=== PATIENT | male | born 1985 | race American Indian/Alaskan Native ===

== ENCOUNTER 2016-11-08 23:56 | Emergency (ER) | payer OTHER ==
[2016-11-09 00:35] VITALS: BMI 25.8
[2016-11-09] MEDS ORDERED: Sodium Chloride 0.9% 1,000 ML IV STA (00:51)
--- NOTE | 2016-11-09 01:10 | ED PDOC ---
Arrival/HPI - General Historian: Patient - History of Present Illness Time/Duration: 24 hours Symptom Course: Intermittent Quality: Burning Severity Level: 7 <Tremaine Dale - Last Filed: 11/09/16 05:57> <Shiraz Powers - Last Filed: 11/09/16 06:17> - General Chief Complaint: Male Genitourinary Time Seen by Provider: 11/09/16 00:37 - History of Present Illness Narrative History of Present Illness (Text): 11/09/16 01:06 This is a 31 year old male with PMHx asthma who presents for intermittent right sided lower quadrant abdominal pain with hematuria. Patient states that the pain began earlier yesterday morning when he woke up. Pain is about 6-7/10 burning pain. Patient has also had an episode of karo hematuria which prompted him to come in for evaluation. Patient has seen a nurse practitioner in September 2016 for the same issue. Patient states that he was prescribed antibiotics, tylenol #3, and something to allow easier passage for a suspected kidney stone. Patient noted improvement at the time. Patient also has right flank pain with intermittent radiation to the right testes. Patient denies dysuria. PMHx: Asthma PSHx: Denies Allergies: NKDA Social: Intermittent smoking history. Denies alcohol, drugs. Family Hx: Mom with HTN and DM 11/09/16 02:19 (Tremaine Dale) Past Medical History - Provider Review Nursing Documentation Reviewed: Yes - Cardiac Hx Cardiac Disorders: No - Pulmonary Hx Asthma: Yes - Neurological Hx Neurological Disorder: No - HEENT Hx HEENT Disorder: No - Renal Hx Renal Disorder: No - Endocrine/Metabolic Hx Endocrine Disorders: No - Hematological/Oncological Hx Blood Disorders: No - Integumentary Hx Dermatological Disorder: No - Musculoskeletal/Rheumatological Hx Musculoskeletal Disorders: No - Gastrointestinal Hx Gastrointestinal Disorders: No - Genitourinary/Gynecological Hx Genitourinary Disorders: No - Psychiatric Hx Psychophysiologic Disorder: No Hx Substance Use: No - Anesthesia Hx Anesthesia: Yes <Tremaine Dale - Last Filed: 11/09/16 05:57> Family/Social History - Physician Review Nursing Documentation Reviewed: Yes Family/Social History: Diabetes, Hypertension Smoking Status: Smoker Currrent Status Unknown Hx Alcohol Use: Yes Frequency of alcohol use: Socially Hx Substance Use: No <Tremaine Dale - Last Filed: 11/09/16 05:57> Allergies/Home Meds <Tremaine Dale - Last Filed: 11/09/16 05:57> <Shiraz Powers - Last Filed: 11/09/16 06:17> Allergies/Adverse Reactions: Allergies No Known Allergies Allergy (Verified 11/09/16 00:35) Review of Systems - Review of Systems Constitutional: Normal Eyes: Normal ENT: Normal Respiratory: Normal Cardiovascular: Normal Gastrointestinal: Abdominal Pain (right lower quadrant) Genitourinary Male: Hematuria. absent: Dysuria Musculoskeletal: Other (right flank pain) Skin: Normal Neurological: Normal Endocrine: Normal Hemo/Lymphatic: Normal Psychiatric: Normal <Tremaine Dale - Last Filed: 11/09/16 05:57> Physical Exam Vital Signs Reviewed: Yes Temperature: Afebrile Blood Pressure: Hypotensive Pulse: Regular Respiratory Rate: Normal Appearance: Positive for: Well-Appearing Pain Distress: None Mental Status: Positive for: Alert and Oriented X 3 - Systems Exam Head: Present: Atraumatic, Normocephalic Pupils: Present: PERRL Extroacular Muscles: Present: EOMI Conjunctiva: Present: Normal Mouth: Present: Moist Mucous Membranes Neck: Present: Normal Range of Motion Respiratory/Chest: Present: Clear to Auscultation, Good Air Exchange. No: Accessory Muscle Use Cardiovascular: Present: Regular Rate and Rhythm, Normal S1, S2 Abdomen: Present: Normal Bowel Sounds. No: Tenderness, Distention Genitourinary Male: No: Testicle Tenderness Back: Present: CVA Tenderness (right side) Upper Extremity: Present: Normal Inspection, NORMAL PULSES. No: Edema Lower Extremity: Present: Normal Inspection, NORMAL PULSES. No: Edema, CALF TENDERNESS Neurological: Present: GCS=15, CN II-XII Intact Skin: Present: Warm, Dry, Normal Color. No: Rashes Psychiatric: Present: Alert, Oriented x 3 <Tremaine Dale - Last Filed: 11/09/16 05:57> Medical Decision Making <Tremaine Dale - Last Filed: 11/09/16 05:57> <Shiraz Powers - Last Filed: 11/09/16 06:17> ED Course and Treatment: 11/09/16 01:15 CBC, CMP, Coag, Lipase, UA, CT abdomen/pelvis w.o. contrast, NS 1L bolus, Testicular duplex 11/09/16 02:26 Rocephin 1 gm IV given. 11/09/16 04:16 CT abd/pelvis w.o. contrast: FINDINGS: The liver, spleen, gallbladder and pancreas appear grossly normal on this non- contrast study. There is severe right hydronephrosis and cortical thinning presumably congenital UPJ obstruction. There is a small amount of haziness in the surrounding fat concerning for acute infectious/inflammatory process. The left kidney appears grossly normal. No ureteral calculi. The bowel appears grossly normal. A normal appendix is identified coronal images 34 through 43. Small lymph nodes are noted in the groins bilaterally. IMPRESSION: Severe right hydronephrosis and cortical thinning presumably congenital UPJ obstruction. Small amount of right perinephric stranding.Correlation with urinalysis is recommended. Ultrasound testes: FINDINGS: Both testicles measure approximately 4.5 x 2 x 3 cm. The testicles are homogeneous bilaterally. Color flow and arterial waveforms are demonstrated in the testicles bilaterally (no torsion). The epidiymis are normal bilaterally. IMPRESSION: No acute findings. Findings were explained to the patient. Patient understood findings but stated that he did not want to be admitted. Patient signed AMA understanding the risks of doing so. Patient discharged with PO antibiotics and information to follow up with a urologist. (Tremaine Dale) In agreement with resident note, which includes further HPI details. Patient was seen and evaluated with resident, came up with plan and treatment together. Leaving Against Medical Advice (AMA): The patient is choosing to leave against medical advice. I have personally explained to the patient that choosing to do so may result in permanent bodily harm or . I have discussed at great length that without further evaluation and monitoring there may be unforeseen circumstances and/or deterioration causing permanent bodily harm or as a result of their choice. The patient is alert, oriented, and shows the mental capacity to make clear decisions regarding the patients health care at this time. The patient continues to wish to leave against medical advice. In light of the patients decision to leave against medical advice, follow-up has been arranged and the patient is aware of the importance to following up as instructed. The patient has been advised that they should return to the emergency room immediately if they change their mind at any time, or if their condition begins to change or worsen in any way. 11/09/16 06:16 pt seen with resident, hematuria, dysuria. urine shows infection, ct shows pyelo , large hydro. requestsed pt to be admitted for urology eval as large hydro and congenital obstruction. pt refuses. requests d/c. advise outpt fu and return precautiosn (Raswamihai,Shiraz) - Lab Interpretations Lab Results: 11/09/16 01:43 11/09/16 01:43 Lab Results 11/09/16 01:43: Sodium 138, Potassium 3.7, Chloride 100, Carbon Dioxide 29, Anion Gap 13, BUN 10, Creatinine 1.0, Est GFR ( Amer) > 60, Est GFR (Non- Af Amer) > 60, Random Glucose 119 H, Calcium 9.0, Total Bilirubin 0.6, AST 35, ALT 10, Alkaline Phosphatase 61, Total Protein 7.8, Albumin 4.0, Globulin 3.7, Albumin/Globulin Ratio 1.1, Lipase 26 11/09/16 01:43: Urine Color Yellow, Urine Appearance Cloudy, Urine pH 6.5, Ur Specific [place] 1.015, Urine Protein 100 H, Urine Glucose (UA) Negative, Urine Ketones Negative, Urine Blood Large H, Urine Nitrate Negative, Urine Bilirubin Negative, Urine Urobilinogen 0.2, Ur Leukocyte Esterase Large H, Urine RBC 10 - 15, Urine WBC Tntc, Ur Epithelial Cells 0 - 2, Urine Bacteria Mod 11/09/16 01:43: PT 11.8, INR 1.09 H, APTT 30.4 11/09/16 01:43: WBC 9.2, RBC 4.66, Hgb 14.6, Hct 41.9 L, MCV 89.9, MCH 31.3, MCHC 34.8, RDW 13.2, Plt Count 235, MPV 10.1, Gran % 67.5, Lymph % (Auto) 19.8 L , [place] % (Auto) 10.8 H, Eos % (Auto) 1.4 L, Baso % (Auto) 0.5, Gran # 6.18, Lymph # 1.8, [place] # 1.0 H, Eos # 0.1, Baso # 0.05 - RAD Interpretation Radiology Orders: 11/09/16 00:51 ABD & PELVIS W/O PO OR IV CONT [CT] Stat 11/09/16 02:18 TESTES DUPLEX COMPLETE [US] Stat - Medication Orders Current Medication Orders: Discontinued Medications Sodium Chloride (Sodium Chloride 0.9%) 1,000 mls @ 1,000 mls/hr IV .Q1H STA Stop: 11/09/16 01:50 Last Admin: 11/09/16 02:34 Dose: 1,000 mls/hr Ceftriaxone Sodium (Rocephin 1 Gram Ivpb) 1 gm in 100 mls @ 200 mls/hr IVPB STAT STA PRN Reason: Protocol Stop: 11/09/16 02:52 Last Admin: 11/09/16 02:39 Dose: 200 mls/hr <Tremaine Dale - Last Filed: 11/09/16 05:57> - Scribe Statement The provider has reviewed the documentation as recorded by the Scribe <Shiraz Powers - Last Filed: 11/09/16 06:17> - Scribe Statement Jenelle Whaley Provider Scribe Attestation: All medical record entries made by the Scribe were at my direction and personally dictated by me. I have reviewed the chart and agree that the record accurately reflects my personal performance of the history, physical exam, medical decision making, and the department course for this patient. I have also personally directed, reviewed, and agree with the discharge instructions and disposition. (Shiraz Powers) Disposition/Present on Arrival - Present on Arrival Any Indicators Present on Arrival: No History of DVT/PE: No History of Uncontrolled Diabetes: No Urinary Catheter: No History of Decub. Ulcer: No History Surgical Site Infection Following: None - Disposition Have Diagnosis and Disposition been Completed?: Yes Disposition Time: 04:30 <Tremaine Dale - Last Filed: 11/09/16 05:57> <Shiraz Powers - Last Filed: 11/09/16 06:17> - Disposition Diagnosis: Pyelonephritis Disposition: AGAINST MEDICAL ADVICE Condition: GOOD Discharge Instructions (ExitCare): Acute Pyelonephritis (ED) Additional Instructions: you are declining admission at this time. you are able to return to emergency room with worsening symptoms at any point with any concerns. Prescriptions: Cefpodoxime [Vantin] 100 mg PO BID #20 tab Referrals: Som Jesus MD [Staff Provider] - Follow up with primary Forms: [employer] (Macedonian)
[2016-11-09 02:07] LABS: INR 1.09 (0.93-1.08); PARTIAL THROMBOPLASTIN TIME 30.4 Seconds (23.7-30.8)
[2016-11-09 02:08] LABS: BASO # 0.05 K/mm3 (0.0-2.0); BASO % 0.5 % (0.0-3.0); EOS # 0.1 (0.0-0.7); EOS % 1.4 % (1.5-5.0); GRAN # 6.18 (1.4-6.5); GRAN % 67.5 % (50.0-68.0); HEMATOCRIT 41.9 % (42.0-52.0); LYMPH # 1.8 (1.2-3.4); LYMPH % 19.8 % (22.0-35.0); MEAN CELL VOLUME 89.9 fl (80.0-105.0); MEAN CORPUSCULAR HEMOGLOBIN 31.3 pg (25.0-35.0); MEAN CORPUSCULAR HGB CONC 34.8 g/dl (31.0-37.0); MEAN PLATELET VOLUME 10.1 fl (7.0-11.0); MONO % 10.8 % (1.0-6.0); RED CELL DISTRIBUTION WIDTH 13.2 % (11.5-14.5); WHITE BLOOD COUNT 9.2 10^3/ul (4.5-11.0)
[2016-11-09 02:10] LABS: ALB/GLOB RATIO 1.1 (1.1-1.8); ALKALINE PHOSPHATASE 61 U/L (38-126); ALT/SGPT 10 U/L (7-56); AST/SGOT 35 U/L (17-59); BILIRUBIN,TOTAL 0.6 mg/dL (0.2-1.3); BLOOD UREA NITROGEN 10 mg/dL (7-21); CARBON DIOXIDE 29 mmol/L (21-33); CHLORIDE 100 mmol/L (98-107); GFR AFRICAN-AMERICAN > 60; GLUCOSE,RANDOM 119 mg/dL (70-110); LIPASE 26 U/L (23-300); PH,URINE 6.5 (4.7-8.0); POTASSIUM 3.7 mmol/L (3.6-5.0); SODIUM 138 mmol/L (132-148); TOTAL PROTEIN 7.8 g/dL (5.8-8.3); URINE BILIRUBIN NEGATIVE (NEGATIVE); URINE BLOOD LARGE (NEGATIVE); URINE GLUCOSE (UA) NEGATIVE (NEGATIVE); URINE KETONE NEGATIVE (NEGATIVE); URINE LEUKOCYTE ESTERASE LARGE Leu/uL (NEGATIVE); URINE PROTEIN 100 mg/dL (<30 mg/dL); URINE UROBILINOGEN 0.2 E.U./dL (<1 E.U./dL)
[2016-11-09 02:11] LABS: URINE COLOR YELLOW (YELLOW)
[2016-11-09 02:20] LABS: URINE APPEARANCE CLOUDY (CLEAR)
[2016-11-09 02:22] LABS: URINE BACTERIA MOD (NEG); URINE EPITHELIAL CELLS 0 - 2 /hpf (0-5); URINE WBC TNTC /hpf (0-6)
[2016-11-09] MEDS ORDERED: cefTRIAXone 1 gm 1 GM/100 ML BAG IVPB STA (02:23)
[2016-11-09 02:49] VITALS: PULSE 79
--- NOTE | 2016-11-09 04:13 | CT ---
EXAM: CT Abdomen and Pelvis Without Intravenous Contrast EXAM DATE/TIME: 11/09/2016 12:51 AM CLINICAL HISTORY: 31 years old, male; Pain; Abdominal pain; Flank; Right; Additional info: Right flank pain TECHNIQUE: Axial computed tomography images of the abdomen and pelvis without intravenous contrast. All CT scans at this facility use one or more dose reduction techniques, viz.: automated exposure control; ma/kV adjustment per patient size (including targeted exams where dose is matched to indication; i.e. head); or iterative reconstruction technique. Coronal and sagittal reformatted images were created and reviewed. COMPARISON: No relevant prior studies available. FINDINGS: The liver, spleen, gallbladder and pancreas appear grossly normal on this non-contrast study. There is severe right hydronephrosis and cortical thinning presumably congenital UPJ obstruction. There is a small amount of haziness in the surrounding fat concerning for acute infectious/inflammatory process. The left kidney appears grossly normal. No ureteral calculi. The bowel appears grossly normal. A normal appendix is identified coronal images 34 through 43. Small lymph nodes are noted in the groins bilaterally. IMPRESSION: Severe right hydronephrosis and cortical thinning presumably congenital UPJ obstruction. Small amount of right perinephric stranding.Correlation with urinalysis is recommended.
--- NOTE | 2016-11-09 04:17 | US ---
EXAM: US Scrotum EXAM DATE/TIME: 11/09/2016 2:18 AM CLINICAL HISTORY: 31 years old, male; Pain; Groin pain; Additional info: Right testicular pain TECHNIQUE: Real-time ultrasound of the scrotum with color Doppler and image documentation. COMPARISON: No relevant prior studies available. FINDINGS: Both testicles measure approximately 4.5 x 2 x 3 cm. The testicles are homogeneous bilaterally. Color flow and arterial waveforms are demonstrated in the testicles bilaterally (no torsion). The epidiymis are normal bilaterally. IMPRESSION: No acute findings.
[2016-11-09 05:14] VITALS: BP 112/64; RESP 16; TEMP 97.9; O2SAT 99
== END 2016-11-09 04:55 | disposition left against medical advice (07) ==
LOC: ED 23:56 → MERGE 23:56 → ED 11-09 04:55
DX: N10 Acute pyelonephritis (principal)
CPT/HCPCS: 74176; 80053; 81001; 83690; 85025; 85610; 85730; 87086; 93975; 99285; J0696; J7040

== ENCOUNTER 2017-09-24 04:05 | Emergency (ER) | payer OTHER ==
[2017-09-24 04:05] VITALS: BMI 25.8
[2017-09-24 04:37] VITALS: RESP 18
[2017-09-24 05:05] LABS: PH,URINE 6.5 (4.7-8.0); URINE BILIRUBIN NEGATIVE (NEGATIVE); URINE BLOOD LARGE (NEGATIVE); URINE GLUCOSE (UA) NEGATIVE (NEGATIVE); URINE LEUKOCYTE ESTERASE LARGE Leu/uL (NEGATIVE); URINE PROTEIN 100 mg/dL (<30 mg/dL); URINE UROBILINOGEN 0.2 E.U./dL (<1 E.U./dL)
[2017-09-24 05:11] LABS: URINE APPEARANCE CLOUDY (CLEAR); URINE COLOR LIGHT RED (YELLOW)
[2017-09-24 05:16] LABS: BASO # 0.06 K/mm3 (0.0-2.0); BASO % 0.6 % (0.0-3.0); EOS # 0.3 (0.0-0.7); GRAN # 6.14 (1.4-6.5); GRAN % 59.2 % (50.0-68.0); LYMPH % 28.6 % (22.0-35.0); MEAN CELL VOLUME 88.5 fl (80.0-105.0); MEAN CORPUSCULAR HEMOGLOBIN 30.5 pg (25.0-35.0); MEAN CORPUSCULAR HGB CONC 34.5 g/dl (31.0-37.0); MEAN PLATELET VOLUME 10.3 fl (7.0-11.0); MONO # 0.9 (0.1-0.6); MONO % 8.6 % (1.0-6.0); RBC 4.59 10^6/uL (3.5-6.1); RED CELL DISTRIBUTION WIDTH 13.4 % (11.5-14.5); WHITE BLOOD COUNT 10.4 10^3/ul (4.5-11.0)
[2017-09-24 05:20] LABS: ALB/GLOB RATIO 1.1 (1.1-1.8); ALBUMIN 4.2 g/dL (3.0-4.8); ALT/SGPT 20 U/L (7-56); AST/SGOT 26 U/L (17-59); BLOOD UREA NITROGEN 10 mg/dL (7-21); CALCIUM 9.2 mg/dL (8.4-10.5); GFR AFRICAN-AMERICAN > 60; GFR NON-AFRICAN AMERICAN > 60
[2017-09-24 05:27] LABS: URINE EPITHELIAL CELLS 0 - 2 /hpf (0-5); URINE WBC TNTC /hpf (0-6)
[2017-09-24 05:31] LABS: URINE BACTERIA MOD (NEG)
--- NOTE | 2017-09-24 05:58 | ED PDOC ---
Arrival/HPI - General Chief Complaint: Abdominal Pain Time Seen by Provider: 09/24/17 04:27 Historian: Patient - History of Present Illness Narrative History of Present Illness (Text): 09/24/17 04:44 A 32 year old male, whose past medical history includes asthma, presents to the emergency department complaining of right-side flank pain and dark urine for the past few days. Patient reports having been evaluated for similar symptoms in the past and was previously diagnosed with a kidney infection. Patient denies any fever, nausea, vomiting, appetite changes, or any other complaints at this time. Also, patient denies any history of kidney stones. No PMD Past Medical History - Provider Review Nursing Documentation Reviewed: Yes - Cardiac Hx Cardiac Disorders: No - Pulmonary Hx Respiratory Disorders: Yes Hx Asthma: Yes - Neurological Hx Neurological Disorder: No - HEENT Hx HEENT Disorder: No - Renal Hx Renal Disorder: No - Endocrine/Metabolic Hx Endocrine Disorders: No - Hematological/Oncological Hx Blood Disorders: No - Integumentary Hx Dermatological Disorder: No - Musculoskeletal/Rheumatological Hx Musculoskeletal Disorders: No - Gastrointestinal Hx Gastrointestinal Disorders: No - Genitourinary/Gynecological Hx Genitourinary Disorders: Yes Hx Hematuria: Yes - Psychiatric Hx Psychophysiologic Disorder: No Hx Substance Use: No - Anesthesia Hx Anesthesia: Yes Family/Social History - Physician Review Nursing Documentation Reviewed: Yes Family/Social History: No Known Family HX Smoking Status: Never Smoked Hx Alcohol Use: Yes Frequency of alcohol use: Socially Hx Substance Use: No Allergies/Home Meds Allergies/Adverse Reactions: Allergies No Known Allergies Allergy (Verified 11/09/16 00:35) Review of Systems - Physician Review All systems were reviewed & negative as marked: Yes - Review of Systems Constitutional: absent: Fevers Gastrointestinal: absent: Nausea, Vomiting, Appetite Changes Genitourinary Male: Hematuria Musculoskeletal: Other (right-side flank pain) Physical Exam Vital Signs Reviewed: Yes Vital Signs Temp Pulse Resp BP Pulse Ox 09/24/17 10:10 98.5 F 79 18 108/77 99 09/24/17 07:15 98.6 F 70 18 100/54 L 98 09/24/17 04:36 98.8 F 76 18 110/63 97 Temperature: Afebrile Blood Pressure: Normal Pulse: Regular Respiratory Rate: Normal Appearance: Positive for: Well-Appearing, Non-Toxic, Comfortable Pain Distress: None Mental Status: Positive for: Alert and Oriented X 3 - Systems Exam Head: Present: Atraumatic, Normocephalic Mouth: Present: Moist Mucous Membranes Neck: Present: Normal Range of Motion Respiratory/Chest: Present: Clear to Auscultation, Good Air Exchange. No: Respiratory Distress, Accessory Muscle Use Cardiovascular: Present: Regular Rate and Rhythm, Normal S1, S2. No: Murmurs Abdomen: No: Tenderness, Distention, Peritoneal Signs Back: Present: Normal Inspection, Other (right-side flank pain) Upper Extremity: Present: Normal Inspection. No: Cyanosis, Edema Lower Extremity: Present: Normal Inspection. No: Edema Neurological: Present: GCS=15, CN II-XII Intact, Speech Normal Skin: Present: Warm, Dry, Normal Color. No: Rashes Psychiatric: Present: Alert, Oriented x 3, Normal Insight, Normal Concentration Medical Decision Making ED Course and Treatment: 09/24/17 04:48 Impression: 32 year old male with right-side flank pain and hematuria. Plan: -- Abd/Pelvis CT -- Labs -- Urinalysis -- Urine Culture -- Reassess and disposition Prior Visits: Notes and results from previous visits were reviewed. Patient was last seen in the emergency department on 11/09/2016 for intermittent right sided lower quadrant abdominal pain with hematuria. Patient left against medical advice and was diagnosed with acute pyelonephritis. Progress Notes: - Lab Interpretations Microbiology Results: Microbiology Results 09/24/17 04:50 Urine Urine Culture - Final No Growth (<1,000 CFU/ML) Lab Results: 09/24/17 05:00 09/24/17 05:00 Lab Results 09/24/17 05:00: Sodium 138, Potassium 4.0, Chloride 100, Carbon Dioxide 28, Anion Gap 14, BUN 10, Creatinine 1.1, Est GFR ( Amer) > 60, Est GFR (Non- Af Amer) > 60, Random Glucose 90, Calcium 9.2, Magnesium 1.7, Total Bilirubin 1.2, AST 26, ALT 20, Alkaline Phosphatase 63, Total Protein 7.8, Albumin 4.2, Globulin 3.7, Albumin/Globulin Ratio 1.1 09/24/17 05:00: WBC 10.4, RBC 4.59, Hgb 14.0, Hct 40.6 L, MCV 88.5, MCH 30.5, MCHC 34.5, RDW 13.4, Plt Count 228, MPV 10.3, Gran % 59.2, Lymph % (Auto) 28.6, [place] % (Auto) 8.6 H, Eos % (Auto) 3.0, Baso % (Auto) 0.6, Gran # 6.14, Lymph # ( Auto) 3.0, [place] # (Auto) 0.9 H, Eos # (Auto) 0.3, Baso # (Auto) 0.06 09/24/17 04:50: Urine Color Light red, Urine Appearance Cloudy, Urine pH 6.5, Ur Specific [place] 1.010, Urine Protein 100 H, Urine Glucose (UA) Negative, Urine Ketones Negative, Urine Blood Large H, Urine Nitrate Negative, Urine Bilirubin Negative, Urine Urobilinogen 0.2, Ur Leukocyte Esterase Large H, Urine RBC 2 - 5, Urine WBC Tntc, Ur Epithelial Cells 0 - 2, Urine Bacteria Mod I have reviewed the lab results: Yes - RAD Interpretation Radiology Orders: 09/24/17 04:48 ABD & PELVIS W/O PO OR IV CONT [CT] Stat - Medication Orders Current Medication Orders: Discontinued Medications Levofloxacin/Dextrose (Levaquin 750mg) 750 mg in 150 mls @ 100 mls/hr IVPB STAT STA PRN Reason: Protocol Stop: 09/24/17 09:44 Last Admin: 09/24/17 08:26 Dose: 100 mls/hr eMAR Start Stop Document 09/24/17 08:26 SRE (Rec: 09/24/17 08:27 SRE [id number]) Intravenous Solution Start Date 09/24/17 Start Time 08:27 End Date 09/24/17 End time 09:30 Total Infusion Time 63 - Transfer of Care Patient signed out to Dr:: Wicho Pending Radiology Studies:: CT result - Scribe Statement The provider has reviewed the documentation as recorded by the Minnie Phillips Provider Scribe Attestation: All medical record entries made by the Scribe were at my direction and personally dictated by me. I have reviewed the chart and agree that the record accurately reflects my personal performance of the history, physical exam, medical decision making, and the department course for this patient. I have also personally directed, reviewed, and agree with the discharge instructions and disposition. Disposition/Present on Arrival - Present on Arrival Any Indicators Present on Arrival: No History of DVT/PE: No History of Uncontrolled Diabetes: No Urinary Catheter: No History of Decub. Ulcer: No History Surgical Site Infection Following: None - Disposition Have Diagnosis and Disposition been Completed?: Yes Diagnosis: Pyelonephritis Disposition: AGAINST MEDICAL ADVICE Disposition Time: 07:00 Condition: STABLE Discharge Instructions (ExitCare): Kidney Infection (DC) Prescriptions: levoFLOXacin [Levaquin] 1 tab PO DAILY #10 tab Referrals: Berny Murphy MD [Staff Provider] - Follow up with primary Forms: [employer] (Chinese)
--- NOTE | 2017-09-24 07:09 | ED PDOC ---
Physical Exam Vital Signs Temp Pulse Resp BP Pulse Ox 09/24/17 07:15 98.6 F 70 18 100/54 L 98 09/24/17 04:36 98.8 F 76 18 110/63 97 Medical Decision Making ED Course and Treatment: 09/24/17 07:00 Case was endorsed to me by Dr. Aleman. Patient is a 32 year old male, whose past medical history includes asthma, who presented to the emergency department complaining of right-side flank pain and dark urine for the past few days. Currently pending CT abdomen and pelvis scan. 09/24/17 08:17 IMPRESSION: Severe hydronephrosis right kidney which appears chronic. The cause of the obstruction is not seen. No stones are identified. There is mild inflammation around the extrarenal pelvis of this kidney and some thickening of the norman of the extrarenal pelvis concern for urinary tract infection. Correlation with urinalysis would be helpful. Similar findings on prior study. Patient in no acute distress. Advised admission due to UTI with hydro but patient refused. - Lab Interpretations Lab Results: 09/24/17 05:00 09/24/17 05:00 Lab Results 09/24/17 05:00: Sodium 138, Potassium 4.0, Chloride 100, Carbon Dioxide 28, Anion Gap 14, BUN 10, Creatinine 1.1, Est GFR ( Amer) > 60, Est GFR (Non- Af Amer) > 60, Random Glucose 90, Calcium 9.2, Magnesium 1.7, Total Bilirubin 1.2, AST 26, ALT 20, Alkaline Phosphatase 63, Total Protein 7.8, Albumin 4.2, Globulin 3.7, Albumin/Globulin Ratio 1.1 09/24/17 05:00: WBC 10.4, RBC 4.59, Hgb 14.0, Hct 40.6 L, MCV 88.5, MCH 30.5, MCHC 34.5, RDW 13.4, Plt Count 228, MPV 10.3, Gran % 59.2, Lymph % (Auto) 28.6, [place] % (Auto) 8.6 H, Eos % (Auto) 3.0, Baso % (Auto) 0.6, Gran # 6.14, Lymph # ( Auto) 3.0, [place] # (Auto) 0.9 H, Eos # (Auto) 0.3, Baso # (Auto) 0.06 09/24/17 04:50: Urine Color Light red, Urine Appearance Cloudy, Urine pH 6.5, Ur Specific [place] 1.010, Urine Protein 100 H, Urine Glucose (UA) Negative, Urine Ketones Negative, Urine Blood Large H, Urine Nitrate Negative, Urine Bilirubin Negative, Urine Urobilinogen 0.2, Ur Leukocyte Esterase Large H, Urine RBC 2 - 5, Urine WBC Tntc, Ur Epithelial Cells 0 - 2, Urine Bacteria Mod - RAD Interpretation Radiology Orders: 09/24/17 04:48 ABD & PELVIS W/O PO OR IV CONT [CT] Stat - Medication Orders Current Medication Orders: Levofloxacin/Dextrose (Levaquin 750mg) 750 mg in 150 mls @ 100 mls/hr IVPB STAT STA PRN Reason: Protocol Stop: 09/24/17 09:44 - Scribe Statement The provider has reviewed the documentation as recorded by the Scribe Stacey Hernandez Provider Scribe Attestation: All medical record entries made by the Scribe were at my direction and personally dictated by me. I have reviewed the chart and agree that the record accurately reflects my personal performance of the history, physical exam, medical decision making, and the department course for this patient. I have also personally directed, reviewed, and agree with the discharge instructions and disposition. Disposition/Present on Arrival - Present on Arrival Any Indicators Present on Arrival: No History of DVT/PE: No History of Uncontrolled Diabetes: No Urinary Catheter: No History of Decub. Ulcer: No History Surgical Site Infection Following: None - Disposition Have Diagnosis and Disposition been Completed?: Yes Diagnosis: Pyelonephritis Disposition: AGAINST MEDICAL ADVICE Disposition Time: 08:18 Patient Plan: Discharge Condition: STABLE Discharge Instructions (ExitCare): Kidney Infection (DC) Prescriptions: levoFLOXacin [Levaquin] 1 tab PO DAILY #10 tab Referrals: Berny Murphy MD [Staff Provider] - Follow up with primary Forms: [employer] (Burmese) Against Medical Advice - AMA Patient Left Against Medical Advice: The patient declines admission to the hospital and wishes to leave the Emergency Department. This action is against my medical advice. This decision was made with informed refusal. The patient was told that admission to the hospital is necessary. Explanation of the reasons why were discussed. The risks of leaving were explained to the patient and include, but are not limited to, worsening of known or currently unknown conditions, permanent disability and from undiagnosed or untreated conditions. The patient has the capacity to make this informed decision and understands my explanation of the current medical problem and risks of leaving. The patient voluntarily accepts these risks and signed an AMA form documenting our conversation. The patient was given the opportunity to ask questions and reconsider. The patient was encouraged to return to the Emergency Department at any time for further care.
[2017-09-24] MEDS ORDERED: levoFLOXacin 750 mg in D5W 750 MG/150 ML BAG IVPB STA (08:15)
--- NOTE | 2017-09-24 09:05 | CT ---
Date of service: 09/24/2017 PROCEDURE: CT Abdomen and Pelvis without intravenous contrast HISTORY: right flank pain with hematuria COMPARISON: None. TECHNIQUE: Without contrast.. Contrast dose: 0 Radiation dose: Total exam DLP = 342.6 mGy-cm. This CT exam was performed using one or more of the following dose reduction techniques: Automated exposure control, adjustment of the mA and/or kV according to patient size, and/or use of iterative reconstruction technique. FINDINGS: LOWER THORAX: Unremarkable. LIVER: Unremarkable. No gross lesion or ductal dilatation. GALLBLADDER AND BILE DUCTS: Unremarkable. PANCREAS: Unremarkable. No gross lesion or ductal dilatation. SPLEEN: Unremarkable. ADRENALS: Unremarkable. No mass. KIDNEYS AND URETERS: Severe right hydronephrosis with dilatation of what is likely an extrarenal pelvis. There is thickening of the wall of this extrarenal pelvis suggestive of possible chronic infection. This is unchanged in appearance when compared to 11/09/2016. There is no renal calculus. There is no solid mass identified. The extent of hydronephrosis is unchanged. There is no left hydronephrosis. There is no hydroureter or ureteral calculus. There is no perinephric fluid. VASCULATURE: Unremarkable. No aortic aneurysm. BOWEL: Unremarkable. No obstruction. No gross mural thickening. APPENDIX: Unremarkable. Normal appendix. PERITONEUM: Unremarkable. No free fluid. No free air. LYMPH NODES: Unremarkable. No enlarged lymph nodes. BLADDER: Unremarkable. REPRODUCTIVE: Normal prostate BONES: No acute fracture. OTHER FINDINGS: None. IMPRESSION: Chronic severe right hydronephrosis with dilated extrarenal pelvis. Stricture versus congenital UPJ narrowing versus neoplasm. Mild thickening of the wall of the extrarenal pelvis which raises the possibility of an infectious process. No additional abnormality. The preliminary findings for this examination were reported by [facility] at 8:05 a.m. on 09/24/2017. There is concurrence of this report with the preliminary findings.
[2017-09-24 10:29] VITALS: BP 108/77; PULSE 79; TEMP 98.5; O2SAT 99
== END 2017-09-24 10:26 | disposition left against medical advice (07) ==
LOC: ED 04:05
DX: N12 Tubulo-interstitial nephritis, not specified as acute or chronic (principal)

== ENCOUNTER 2018-01-13 11:38 | Emergency (ER) | payer OTHER ==
[2018-01-13 11:47] VITALS: BMI 26.6
[2018-01-13] MEDS ORDERED: Albuterol-Ipratrop 3 mg / 0.5 (3 ml) UD IH STA (12:02)
--- NOTE | 2018-01-13 12:09 | ED PDOC ---
Arrival/HPI - General Chief Complaint: Cough, Cold, Congestion Time Seen by Provider: 01/13/18 11:40 Historian: Patient - History of Present Illness Narrative History of Present Illness (Text): 01/13/18 12:03 32 y/o M, with past medical history of asthma, presents to the Emergency department complaining of flu-like symptoms for past 2 days. Patient informs symptoms of non-productive cough, chest congestion, shortness of breath, sinus pressure and subjective fever. Patient reports similar symptoms 2 weeks ago, which resolved after 10 days. He reports his symptoms returned exacerbating his asthma; unimproved even after nebulizer treatments and over the counter medications. He denies any headache, dizziness, chest pain, sore throat, ringing in ears, difficulty swallowing, abdominal pain, nausea, vomiting, diarrhea, back pain, neck pain, or any other complaints. Patient denies taking the flu shot this year. Time/Duration: < week Symptom Onset: Gradual Symptom Course: Worsening Severity Level: Moderate Activities at Onset: Rest Context: Home Past Medical History - Provider Review Nursing Documentation Reviewed: Yes - Travel History Have you recently traveled outside [place] w/in the past 3 mons?: No - Infectious Disease Hx of Infectious Diseases: None - Cardiac Hx Cardiac Disorders: No - Pulmonary Hx Respiratory Disorders: Yes Hx Asthma: Yes - Neurological Hx Neurological Disorder: No - HEENT Hx HEENT Disorder: No - Renal Hx Renal Disorder: No - Endocrine/Metabolic Hx Endocrine Disorders: No - Hematological/Oncological Hx Blood Disorders: No - Integumentary Hx Dermatological Disorder: No - Musculoskeletal/Rheumatological Hx Musculoskeletal Disorders: No - Gastrointestinal Hx Gastrointestinal Disorders: No - Genitourinary/Gynecological Hx Genitourinary Disorders: Yes Hx Hematuria: Yes - Psychiatric Hx Psychophysiologic Disorder: No Hx Substance Use: No - Anesthesia Hx Anesthesia: No Family/Social History - Physician Review Nursing Documentation Reviewed: Yes Family/Social History: Unknown Family HX Smoking Status: Never Smoked Hx Alcohol Use: Yes Hx Substance Use: No Allergies/Home Meds Allergies/Adverse Reactions: Allergies No Known Allergies Allergy (Verified 11/09/16 00:35) Review of Systems - Physician Review All systems were reviewed & negative as marked: Yes - Review of Systems Constitutional: Fevers ENT: absent: Sore Throat Respiratory: SOB, Cough Cardiovascular: Other (Chest congestion). absent: Chest Pain Gastrointestinal: absent: Abdominal Pain, Diarrhea, Nausea, Vomiting Genitourinary Male: absent: Dysuria, Urinary Output Changes Musculoskeletal: absent: Back Pain, Neck Pain Skin: absent: Rash Neurological: absent: Headache, Dizziness Psychiatric: absent: Anxiety, Depression Physical Exam Vital Signs Reviewed: Yes Vital Signs Temp Pulse Resp Pulse Ox 01/13/18 11:48 98.6 F 83 18 97 Temperature: Afebrile Blood Pressure: Normal Pulse: Regular Respiratory Rate: Normal Appearance: Positive for: Well-Appearing, Non-Toxic, Comfortable Pain Distress: None Mental Status: Positive for: Alert and Oriented X 3 - Systems Exam Head: Present: Atraumatic, Normocephalic Pupils: Present: PERRL Extroacular Muscles: Present: EOMI Conjunctiva: Present: Normal Mouth: Present: Moist Mucous Membranes Nose (External): Present: Other (No sinus tenderness bilaterally) Neck: Present: Normal Range of Motion. No: Lymphadenopathy (No anterior cervical Lymphadenopathy) Respiratory/Chest: Present: Good Air Exchange, Wheezes (expiratory and inspiratory wheeze bilaterally w/ R>L within anterior & posterior lung juarez ). No: Respiratory Distress, Accessory Muscle Use Cardiovascular: Present: Regular Rate and Rhythm, Normal S1, S2. No: Murmurs Abdomen: No: Tenderness, Distention, Peritoneal Signs Back: Present: Normal Inspection Upper Extremity: Present: Normal Inspection. No: Cyanosis, Edema Lower Extremity: Present: Normal Inspection. No: Edema Neurological: Present: GCS=15, CN II-XII Intact, Speech Normal Skin: Present: Warm, Dry, Normal Color. No: Rashes Psychiatric: Present: Alert, Oriented x 3, Normal Insight, Normal Concentration Medical Decision Making ED Course and Treatment: 01/13/18 12:02 Impression: 32 year old male presents to the Emergency department complaining of flu-like symptoms. Differential Diagnosis included but are not limited to: Allergic rhinosinusitis Bronchitis Influenza Pneumonia Plan: -- Chest X-ray -- Duonebs -- Prednisone -- Rapid Flu A/B -- Reassess and disposition Prior Visits: Notes and results from previous visits were reviewed. Progress Notes: 01/13/18 12:59 CXR negative for focal infiltrates. Patient reassessed and feels better. Awaiting influenza results. 01/13/18 13:00 Influenza results negative. CXR shows no evidence of pulmonary infiltrates or consolidations. Patient reassessed and feels better and will follow up with her PCP. She is stable for discharge. - RAD Interpretation Narrative RAD Interpretations (Text): 01/13/18 13:20 Chest X-ray reviewed by radiologist, shows: FINDINGS: LUNGS: No active pulmonary disease. PLEURA: No significant pleural effusion identified, no pneumothorax apparent. CARDIOVASCULAR: No aortic atherosclerotic calcification present. Normal cardiac size. No pulmonary vascular congestion. OSSEOUS STRUCTURES: No significant abnormalities. VISUALIZED UPPER ABDOMEN: Normal. OTHER FINDINGS: None. IMPRESSION: No active disease. [employer] Mill Supervisor: Radiologist - Scribe Statement The provider has reviewed the documentation as recorded by the Scribe Damián Roberts. All medical record entries made by the Scribe were at my direction and personally dictated by me. I have reviewed the chart and agree that the record accurately reflects my personal performance of the history, physical exam, medical decision making, and the department course for this patient. I have also personally directed, reviewed, and agree with the discharge instructions and disposition. Disposition/Present on Arrival - Present on Arrival Any Indicators Present on Arrival: No History of DVT/PE: No History of Uncontrolled Diabetes: No Urinary Catheter: No History of Decub. Ulcer: No History Surgical Site Infection Following: None - Disposition Have Diagnosis and Disposition been Completed?: Yes Diagnosis: Acute bronchitis Disposition: HOME/ ROUTINE Disposition Time: 13:00 Patient Plan: Discharge Condition: IMPROVED Discharge Instructions (ExitCare): Acute Bronchitis, Adult (DC) Print Language: ROMANIAN Additional Instructions: All medical record entries made by the Scribe were at my direction and personally dictated by me. I have reviewed the chart and agree that the record accurately reflects my personal performance of the history, physical exam, medical decision making, and the department course for this patient. I have also personally directed, reviewed, and agree with the discharge instructions and disposition. Prescriptions: Albuterol HFA [Ventolin HFA 90 mcg/actuation (8 g)] 2 puff IH [id number] #200 puff Methylprednisolone [Medrol Dose Pack (21 tabs)] 4 mg PO DAILY #21 mg Referrals: FAMILY PROVIDER,NO [Primary Care Provider] - Follow up with primary Whit Mena MD [Medical Doctor] - Follow up with primary [facility] [place] - Follow up with primary Forms: [employer] (Telugu), WORK NOTE
[2018-01-13] MEDS ORDERED: Albuterol 0.083% Inhal Sol (2.5 mg/3 mL) UD INH STA (12:47)
--- NOTE | 2018-01-13 13:14 | RAD ---
Date of service: 01/13/2018 HISTORY: sob COMPARISON: No prior. FINDINGS: LUNGS: No active pulmonary disease. PLEURA: No significant pleural effusion identified, no pneumothorax apparent. CARDIOVASCULAR: No aortic atherosclerotic calcification present. Normal cardiac size. No pulmonary vascular congestion. OSSEOUS STRUCTURES: No significant abnormalities. VISUALIZED UPPER ABDOMEN: Normal. OTHER FINDINGS: None. IMPRESSION: No active disease.
[2018-01-13 13:33] VITALS: O2SAT 100
[2018-01-13 13:38] VITALS: BP 116/53; PULSE 85; RESP 20; TEMP 98
== END 2018-01-13 13:36 | disposition home or self-care (01) ==
LOC: ED 11:38
DX: J20.9 Acute bronchitis, unspecified (principal)